=== PATIENT | female | born 1945 | race Caucasian/White ===

== ENCOUNTER 2025-02-13 16:47 | Inpatient (IN) | payer OTHER ==
[2025-02-13] MEDS ORDERED: ACETAMINOPHEN INJECTION 100 ML ONE ×2 (20:36→21:03)
[2025-02-13 21:10] LABS: HEMOGLOBIN 17.8 g/dL (11.2-15.7); MCHC 28.3 g/dl (32.2-35.5); MEAN CELL VOLUME 81.6 fl (79.4-94.8); PLATELET COUNT 248 x10^3/uL (182-369)
[2025-02-13] MEDS: ACETAMINOPHEN 1000 MG/100 ML BAG IVPB ONE (21:20)
[2025-02-13 21:29] LABS: POTASSIUM 4.4 mmol/L (3.5-5.1)
[2025-02-13 21:31] LABS: ALBUMIN 2.6 g/dl (3.4-5.0); BLOOD UREA NITROGEN 25.7 mg/dL (7-18); CALCIUM 9.1 mg/dL (8.5-10.1)
[2025-02-13 21:35] LABS: CREATININE 1.2 mg/dL (0.55-1.3)
[2025-02-13 21:36] LABS: BILIRUBIN,TOTAL 1.1 mg/dL (0.2-1); TOT PROT 5.4 g/dl (6.4-8.2)
[2025-02-13] MEDS ORDERED: VANCOMYCIN 1 GM PREMIX (F) 1 GM/200 ML BAG ONE (23:30)
[2025-02-13] MEDS ORDERED: PIPERACILLIN/TAZOB 4.5 GM 4.5 GM/100 ML BAG IVPB ONE (23:30)
[2025-02-13] MEDS: PIPERACILLIN/TAZOB 4.5 GM 4.5 GM in DEXTROSE 5%-WATER 100 ML IVPB ONE (23:39)
[2025-02-14] MEDS: VANCOMYCIN 1,000 MG in DEXTROSE 5%-WATER - 250 ML IVPB ONE (00:36)
[2025-02-14] MEDS ORDERED: LABETALOL HCL 100 MG TABLET (FP) ONE (00:57)
[2025-02-14] MEDS: LABETALOL HCL 20 MG/4 ML VIAL IVPUSH ONE ×2 (01:09→04:22)
[2025-02-14] MEDS: LABETALOL HCL 100 MG TABLET (FP) PO ONE (01:58)
[2025-02-14] MEDS: SODIUM CHLORIDE 1,000 ML IV SCH (03:26)
[2025-02-14 04:01] VITALS: RESP 18
[2025-02-14] MEDS: ACETAMINOPHEN 325 MG TABLET (FP) PO PRN (04:04)
[2025-02-14] MEDS: hydrALAZINE HCL 20 MG/ML VIAL IVPUSH ONE (04:30)
[2025-02-14] MEDS: KETOROLAC TROMETHAMINE 15 MG/ML VIAL IVPUSH ONE (05:55)
[2025-02-14] MEDS: HEPARIN NA (PORCINE) 5,000 UNITS/ML 1ML VIAL SQ SCH (05:56)
[2025-02-14] MEDS: amLODIPine BESYLATE 10 MG TABLET (FP) PO SCH (09:19)
[2025-02-14] MEDS: LISINOPRIL 10 MG TABLET PO SCH (09:19)
[2025-02-14] MEDS: CEFAZOLIN 500 MG in DEXTROSE 5%-WATER - 50 ML IVPB SCH (09:21)
[2025-02-14 10:21] LABS: ERYTHROCYTE SEDIMENTATION RATE 1 mm/hr (0-30)
[2025-02-14 11:33] LABS: HEMATOCRIT 61.7 % (34.1-44.9); HEMOGLOBIN 17.7 g/dL (11.2-15.7); MCHC 28.7 g/dl (32.2-35.5); MEAN CELL VOLUME 81.3 fl (79.4-94.8)
[2025-02-14 11:46] LABS: POTASSIUM 4.6 mmol/L (3.5-5.1)
[2025-02-14 11:48] LABS: CALCIUM 8.8 mg/dL (8.5-10.1)
[2025-02-14 11:49] LABS: ALBUMIN 2.5 g/dl (3.4-5.0); BLOOD UREA NITROGEN 23.8 mg/dL (7-18); MAGNESIUM 1.8 mg/dL (1.8-2.4)
[2025-02-14 11:52] LABS: CREATININE 1.2 mg/dL (0.55-1.3); PHOSPHOROUS 3.6 mg/dL (2.5-4.9)
[2025-02-14 11:53] LABS: BILIRUBIN,TOTAL 1.3 mg/dL (0.2-1); TOT PROT 5.3 g/dl (6.4-8.2)
[2025-02-14 14:24] LABS: EPI CELLS 7 /uL (0-25.1); HYALINE CASTS 1 /uL (0-3.1); URINE APPEARANCE CLEAR; URINE BACTERIA 10 /uL (0-1359); URINE BILIRUBIN NEGATIVE (NEGATIVE); URINE COLOR YELLOW; URINE GLUCOSE (UA) TRACE (NEGATIVE); URINE KETONE NEGATIVE (NEGATIVE); URINE LEUK ESTERASE NEGATIVE (NEGATIVE); URINE NITRITE NEGATIVE (NEGATIVE); URINE PROTEIN 4+ (NEGATIVE); URINE RBC 22 /uL (0-23.9); URINE WBC 5 /uL (0-25.8)
[2025-02-14] MEDS ORDERED: ALBUTEROL SO4 HFA INHALER IH PRN (15:31)
[2025-02-14 17:01] LABS: URIC ACID 6.9 mg/dL (2.6-7.2)
[2025-02-14] MEDS: LABETALOL HCL 100 MG TABLET (FP) PO SCH (21:55)
[2025-02-14] MEDS: GABAPENTIN 100 MG CAPSULE PO SCH (21:55)
[2025-02-14] MEDS: BUDESONIDE/FORMETEROL FUMARATE 80/4.5 mcg INHALER IH SCH (21:56)
[2025-02-15] MEDS: hydrALAZINE HCL 20 MG/ML VIAL IVPUSH ONE (02:21)
[2025-02-15] MEDS: oxyCODONE HCL 5 MG TABLET PO PRN (02:34)
[2025-02-15] MEDS: LOSARTAN POTASSIUM 50 MG TABLET PO SCH (09:19)
[2025-02-15 09:46] LABS: MCHC 28.2 g/dl (32.2-35.5); RDW 25.6 % (12.4-16.6)
[2025-02-15 09:57] LABS: HEMATOCRIT 64.8 % (34.1-44.9); HEMOGLOBIN 18.3 g/dL (11.2-15.7); MEAN CELL VOLUME 81.7 fl (79.4-94.8); PLATELET COUNT 261 x10^3/uL (182-369)
[2025-02-15 10:12] LABS: POTASSIUM 4.4 mmol/L (3.5-5.1)
[2025-02-15 10:27] LABS: ALBUMIN 2.6 g/dl (3.4-5.0); BLOOD UREA NITROGEN 21.6 mg/dL (7-18); CALCIUM 8.8 mg/dL (8.5-10.1); MAGNESIUM 1.8 mg/dL (1.8-2.4)
[2025-02-15 10:30] LABS: PHOSPHOROUS 3.3 mg/dL (2.5-4.9)
[2025-02-15 10:33] LABS: BILIRUBIN,TOTAL 1.4 mg/dL (0.2-1)
[2025-02-15 10:36] LABS: TOT PROT 5.3 g/dl (6.4-8.2)
[2025-02-15 16:05] VITALS: BMI 24.8
[2025-02-15] MEDS: EMPAGLIFLOZIN (JARDIANCE) 10 MG TABLET PO SCH (17:30)
[2025-02-15] MEDS: LABETALOL HCL 200 MG TABLET (FP) PO SCH (21:23)
[2025-02-16] MEDS: EMPAGLIFLOZIN (JARDIANCE) 10 MG TABLET PO SCH (06:34)
[2025-02-16 07:45] LABS: HEMATOCRIT 61.8 % (34.1-44.9); HEMOGLOBIN 17.1 g/dL (11.2-15.7); MCHC 27.7 g/dl (32.2-35.5); MEAN CELL VOLUME 82.8 fl (79.4-94.8); PLATELET COUNT 239 x10^3/uL (182-369); RDW 25.9 % (12.4-16.6)
[2025-02-16 09:07] VITALS: TEMP 97.9
[2025-02-16 09:14] LABS: POTASSIUM 4.4 mmol/L (3.5-5.1)
[2025-02-16 09:22] LABS: CALCIUM 9.1 mg/dL (8.5-10.1)
[2025-02-16 09:23] LABS: ALBUMIN 2.4 g/dl (3.4-5.0); BLOOD UREA NITROGEN 22.5 mg/dL (7-18); MAGNESIUM 1.9 mg/dL (1.8-2.4)
[2025-02-16 09:25] LABS: CREATININE 1.1 mg/dL (0.55-1.3)
[2025-02-16 09:27] LABS: BILIRUBIN,TOTAL 1.1 mg/dL (0.2-1); TOT PROT 4.9 g/dl (6.4-8.2)
[2025-02-16 18:03] VITALS: BP 152/58; PULSE 60
[2025-02-18 21:06] LABS: ANTIGLOMERULAR BASEMENT MEN.AB <0.2 units (0.0-0.9)
[2025-02-19 15:06] LABS: C-ANCA <1:20 titer (Neg:<1:20)
== END 2025-02-16 16:50 | disposition home or self-care (01) | DRG 603 ==
LOC: JER 16:47 → JERBED 23:20 → J6S 02-14 01:33
PROVIDERS: ADMIT Hospitalist; ATTEND Internal Medicine
DX: L03.115 Cellulitis of right lower limb (principal); D75.1 Secondary polycythemia; E80.6 Other disorders of bilirubin metabolism; I12.9 Hypertensive chronic kidney disease with stage 1 through stage 4 chronic kidney disease, or unspecified chronic kidney disease; I16.0 Hypertensive urgency; N18.9 Chronic kidney disease, unspecified; R80.9 Proteinuria, unspecified; Z79.1 Long term (current) use of non-steroidal anti-inflammatories (NSAID)
CPT/HCPCS: 36415; 73610-TC-RT-FY; 73630-TC-RT-FY; 76775-TC; 80053; 80061; 81003; 82570; 82668; 83036; 83516; 83520; 83735; 84100; 84156; 84550; 85027; 85651; 86038; 86140; 86160; 86225; 86256; 86431; 87040; 93005; 93010; 93971-TC; 97116-GP; 97161-GP; 99285-25; J0131; J1644